=== PATIENT | male | born 1990 | race Hispanic/Latino ===

== ENCOUNTER 2017-04-13 17:54 | Emergency (ER) | payer OTHER ==
[2017-04-13 18:05] VITALS: BP 142/64; PULSE 86; RESP 18; TEMP 98.1; O2SAT 100
--- NOTE | 2017-04-13 18:50 | ED PDOC ---
HPI: Seizure Time Seen by Provider: 04/13/17 18:00 Chief Complaint (Nursing): Seizure Chief Complaint (Provider): Seizure History Per: Patient, Other (bystander) History/Exam Limitations: no limitations Quality Of Seizure: Generalized (tonic-clonic) Precipitating Factor(s): Recent Change In Medication Or Dose Associated Symptoms: denies: Injury As A Result Of Seizure Activity Additional Complaint(s): Fracisco Pardo is a 26 year old male with previous medical history of seizures, who presents to the emergency department status post seizure episode while at work prior to arrival. Denied fever, chills, cough, chest pain or abdominal pain. Patient stated he uses an off-label Benazepril ordered online on and off for years. He reported 3 years ago, he stopped medication suddenly and had similar seizure then his neurologist prescribed Keppra until he recently self- discontinued it and restarted off-label Benazepril. Patient stopped taking medication yesterday and had seizure today, in which bystanders witnessed foaming at the mouth and caught him before he fell to the ground. girlfriend who is at bedside also witnessed the event, which she said looked like previous seizures which occurs when she stops the benzodiazepine. PMD: none provided Past Medical History Reviewed: Historical Data, Nursing Documentation, Vital Signs Vital Signs: Last Vital Signs Temp 98.1 F 04/13/17 18:02 Pulse 86 04/13/17 18:02 Resp 18 04/13/17 18:02 BP 142/64 04/13/17 18:02 Pulse Ox 100 04/13/17 21:54 - Medical History PMH: Seizures - Surgical History Surgical History: No Surg Hx - Family History Family History: States: Unknown Family Hx - Social History Current smoker - smoking cessation education provided: No Alcohol: > 2 Drinks/Day Drugs: Cannabis - Allergies Allergies/Adverse Reactions: Allergies Allergy/AdvReac Type Severity Reaction Status Date / Time No Known Allergies Allergy Verified 04/13/17 18:01 Review of Systems ROS Statement: Except As Marked, All Systems Reviewed And Found Negative Constitutional: Negative for: Fever, Chills Cardiovascular: Negative for: Chest Pain Respiratory: Negative for: Cough Gastrointestinal: Negative for: Abdominal Pain Neurological: Positive for: Seizures (+foaming at mouth) Physical Exam - Reviewed Nursing Documentation Reviewed: Yes Vital Signs Reviewed: Yes - Physical Exam Appears: Positive for: Well, Non-toxic, No Acute Distress Head Exam: Positive for: ATRAUMATIC, NORMAL INSPECTION, NORMOCEPHALIC Skin: Positive for: Normal Color Eye Exam: Positive for: Normal appearance, EOMI, PERRL. Negative for: Nystagmus ENT: Positive for: Normal ENT Inspection Neck: Positive for: Normal, Painless ROM, Supple. Negative for: Decreased ROM Cardiovascular/Chest: Positive for: Regular Rate, Rhythm, Chest Non Tender. Negative for: Murmur Respiratory: Positive for: Normal Breath Sounds, Accessory Muscle Use. Negative for: Decreased Breath Sounds, Crackles, Rales, Rhonchi, Wheezing, Respiratory Distress Gastrointestinal/Abdominal: Positive for: Normal Exam, Bowel Sounds, Soft. Negative for: Tenderness Extremity: Positive for: Normal ROM. 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 Negative for: Motor/Sensory Deficits, Aphasia - Laboratory Results Result Diagrams: 04/13/17 19:11 04/13/17 19:11 - ECG O2 Sat by Pulse Oximetry: 100 (RA) Pulse Ox Interpretation: Normal Medical Decision Making Medical Decision Making: Initial Impression: Generalized tonic-clonic seizure likely from abrupty stopping benzodiazepine like substance Initial Plan: * EKG * CMP * CBC * Urine C&S * Urinalysis Time: 2032 --Reviewed labs. --Started NS 1,000ml IV per 150mls/hr. --Awaiting urine culture results. labs reviewed, urine as well urine tox shows positive pcp, marijuana as well pt made aware. states he used those as well. Time: 2139 --Upon provider reevaluation, patient is feeling better, medically stable and requires no further treatment in the ED at this time. Drug screening was positive for PCP and marijuana. Patient will be discharged home. Counseling was provided and all questions were answered regarding diagnosis and need for follow up with neurologist and detox center. infromation provided There is agreement to discharge plan. Return if symptoms persist or worsen. Clinical Impression: Benzodiazepine withdrawal Scribe Attestation: Documented by Caridad Lopez, acting as a scribe for Anna Garcia MD. Provider Scribe Attestation: All medical record entries made by the Scribe were at my direction and personally dictated by me. I have reviewed the chart and agree that the record accurately reflects my personal performance of the history, physical exam, medical decision making, and the department course for this patient. I have also personally directed, reviewed, and agree with the discharge instructions and disposition. Disposition - Clinical Impression Clinical Impression: Benzodiazepine withdrawal - Patient ED Disposition Is Patient to be Admitted: No Counseled Patient/Family Regarding: Studies Performed, Diagnosis, Need For Followup - Disposition [facility] [Outside] Gilberto Randhawa MD [Staff Provider] - Disposition: Routine/Home Disposition Time: 21:00 Condition: IMPROVED Additional Instructions: follow up with a detox center and also with neurologist this week return to the ED with any worsening or concerning symptoms Instructions: Benzodiazepine Abuse (ED) Forms: [employer] ([employer])
[2017-04-13 19:14] LABS: BASO % 0.2 % (0.0-2.0); EOS # 0.1 K/uL (0.0-0.7); EOS % 0.9 % (0.0-4.0); HEMATOCRIT 41.8 % (35.0-51.0); LYMPH # 1.5 K/uL (1.0-4.3); LYMPH % 13.1 % (20.0-40.0); MEAN CELL VOLUME 93.2 fl (80.0-94.0); MEAN CORPUSCULAR HEMOGLOBIN 30.5 pg (27.0-31.0); MEAN CORPUSCULAR HGB CONC 32.7 g/dL (33.0-37.0); MEAN PLATELET VOLUME 8.7 fl (7.2-11.7); MONO # 0.6 K/uL (0.0-0.8); MONO % 5.1 % (0.0-10.0); NEUT # 9.5 K/uL (1.8-7.0); NEUT % 80.7 % (50.0-75.0); RED CELL DISTRIBUTION WIDTH 12.9 % (11.5-14.5); WHITE BLOOD COUNT 11.8 K/uL (4.8-10.8)
[2017-04-13 19:27] LABS: ALB/GLOB RATIO 1.6 (1.0-2.1); ALKALINE PHOSPHATASE 81 U/L (38-126); ALT/SGPT 31 U/L (21-72); AST/SGOT 24 U/L (17-59); BILIRUBIN,TOTAL 0.3 mg/dl (0.2-1.3); BLOOD UREA NITROGEN 20 mg/dl (9-20); CALCIUM 9.8 mg/dL (8.4-10.2); CARBON DIOXIDE 26 mmol/L (22-30); CHLORIDE 103 mmol/L (98-107); GFR AFRICAN-AMERICAN > 60; GLUCOSE,RANDOM 108 mg/dL (75-110); POTASSIUM 4.3 MMOL/L (3.6-5.0); SODIUM 142 mmol/l (132-148); TOTAL PROTEIN 8.2 G/DL (6.3-8.2)
[2017-04-13 19:31] LABS: RBC URINE 2 /hpf (0-3); URINE BILIRUBIN NEGATIVE (NEGATIVE); URINE BLOOD SMALL (NEGATIVE); URINE COLOR STRAW (YELLOW); URINE GLUCOSE (UA) NEG (Normal); URINE KETONE NEGATIVE (NEGATIVE); URINE LEUKOCYTE ESTERASE NEG Leu/uL (Negative); URINE PROTEIN 100 mg/dL (NEGATIVE); URINE UROBILINOGEN 0.2-1.0 mg/dL (0.2-1.0); WBC URINE < 1 /hpf (0-5)
[2017-04-13] MEDS ORDERED: Sodium Chloride 0.9% 1,000 ML IV STA (20:33)
--- NOTE | 2017-04-14 07:34 | CARD ---
APPROVED REPORT EKG Measurement Heart [id number] <Conclusion> Sinus bradycardia Rightward axis Early repolarization Borderline ECG
== END 2017-04-13 21:48 | disposition home or self-care (01) ==
LOC: H.ER 17:54
DX: G40.409 Other generalized epilepsy and epileptic syndromes, not intractable, without status epilepticus (principal); F19.230 Other psychoactive substance dependence with withdrawal, uncomplicated
CPT/HCPCS: 80053; 80324; 80345; 80346; 80349; 80353; 80358; 80361; 81003; 83992; 85025; 87086; 93005; 99285; J7040